=== PATIENT | female | born 1955 | race Caucasian/White ===

== ENCOUNTER → 2021-10-13 | Day surgery (SDC) | payer OTHER ==
[~2021-10-13] VITALS: Ht 170.2 cm; Wt 73.5 kg
[~2021-10-13] MED LIST: ACETAMINOPHEN500 M1 PO; COLACE100 MG PO; ESTRACE1 MG PO; GLUCOSAMINE1000 MG PO; LINZESS145 MCG PO; LOVAZA1 GM PO; MOTRIN600 MG PO; MULTIVITAMIN1 EACH PO; OXY-IR 5MG5 MG PO; SYNTHROID50 MCG PO; TRULANCE3 MG PO; VENLAFAXINE H37.5 MG PO
[2021-10-13 08:12] LABS: HCT 40.6 % (37.0-47.0); HGB 13.6 g/dl (12.5-16.0); MCH 30.9 pg (25.0-31.0); MCHC 33.5 g/dL (32.0-36.0); MCV 92.3 fL (78.0-100.0); MPV 9.1 fL (6.0-9.5); RBC 4.4 M/uL (4.20-5.40); WBC 7.8 K/uL (4.0-10.5)
[2021-10-13 08:32] LABS: ALBUMIN 3.6 g/dL (3.4-5.0); BILIRUBIN - TOTAL 0.3 mg/dL (0.2-1.0); BUN/CREAT RATIO (CALC) 21.5 RATIO; CREATININE 0.79 mg/dL (0.51-0.95); GLOBULIN (CALCULATION) 3.2 g/dL; TOTAL PROTEIN 6.8 g/dL (6.4-8.2)
== END | disposition home or self-care (01) ==
LOC: FAS 07:08
PROVIDERS: Student in an Organized Health Care Education/Training Program
DX: K80.12 Calculus of gallbladder with acute and chronic cholecystitis without obstruction (principal); K58.9 Irritable bowel syndrome, unspecified; M19.90 Unspecified osteoarthritis, unspecified site; E03.9 Hypothyroidism, unspecified; F32.A Depression, unspecified; F41.9 Anxiety disorder, unspecified; Z79.899 Other long term (current) drug therapy; Z72.89 Other problems related to lifestyle
CPT/HCPCS: 36415; 80053; 82150; 83690; J1100; J1170; J1335; J1644; J2250; J2405; J2550; J2704; J2710; J3010; J7120; Q9967